=== PATIENT | female | born 1995 | race Caucasian/White ===

== ENCOUNTER 2018-11-18 19:38 | Emergency (ER) | payer OTHER ==
[2018-11-18 20:03] VITALS: BP 129/92
[2018-11-18] MEDS ORDERED: Lidocaine 2% PF * 5 ML VIAL INJ ONE (21:07)
--- NOTE | 2018-11-18 21:07 | UC ---
Skin Complaint HPI - HPI Summary HPI Summary: 23 year old female who has a "cyst"on her tailbone since yesterday. No hx of pilonidal cysts. Denies fever or chills. - History of Current Complaint Chief Complaint: UCSkin Time Seen by Provider: 11/18/18 21:04 Stated Complaint: SORE ON TALE BONE Hx Obtained From: Patient Hx Last Menstrual Period: [id number] ?: No Onset/Duration: Gradual Onset Skin Exposure Onset/Duration: Worse Since: - yesterday Timing: Constant Onset Severity: Mild Current Severity: Moderate Pain Intensity: 6 Location: Other - located at tailbone Character: Swelling, Pain, Redness Aggravating Factor(s): Clothing, Touch Alleviating Factor(s): Nothing - Allergy/Home Medications Allergies/Adverse Reactions: Allergies Allergy/AdvReac Type Severity Reaction Status Date / Time No Known Allergies Allergy Verified 11/18/18 20:03 Home Medications: Home Medications Ibuprofen TAB* [Motrin TAB* 400 MG] 400 mg PO Q6H PRN 11/18/18 [History Confirmed 11/18/18] PMH/Surg Hx/FS Hx/Imm Hx Previously Healthy: Yes - Surgical History Surgical History: Yes Surgery Procedure, Year, and 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 - Family History Known Family History: Positive: Non-Contributory - Social History Alcohol Use: Weekly Alcohol Amount: 3X Substance Use Type: None Smoking Status (MU): Never Smoked Tobacco Review of Systems All Other Systems Reviewed And Are Negative: Yes Skin: Positive: Other - Red, swollen, tender "cyst" around coccyx area Is Patient Immunocompromised?: No Physical Exam Triage Information Reviewed: Yes Appearance: Well-Appearing, No Pain Distress, Well-Nourished Vital Signs: Initial Vital Signs Temp 98.8 F 11/18/18 19:58 Pulse 74 11/18/18 19:58 Resp 16 11/18/18 19:58 BP 129/92 11/18/18 19:58 Pulse Ox 100 11/18/18 19:58 Vital Signs Reviewed: Yes Respiratory: Positive: Lungs clear, Normal breath sounds, No respiratory distress, No accessory muscle use Cardiovascular: Positive: RRR, No Murmur, Pulses Normal, Brisk Capillary Refill Skin: Positive: Other - Small abscess formation distal coccyx area, with erythema, tenderness on palpation, minimally fluctuant raised area measuring approximately 1.0 cm in diameter, surrounded by a hard base measuring approximately 2.5 cm. Procedures - Incision and Drainage Coccyx Anesthesia: Local, Lidocaine Instrument(s): Scalpel Packing: Other - No packing, the abscess was not very deep, but a moderate amount of odorous pus drainage was expressed. The abscess was probed but no loculations were found. This was not a very deep abscess. Course/Dx - Course Course Of Treatment: Pt tolerated the Incision and Drainage well. A gauze dressing was placed and a maxi pad. She is to change that as needed, and follow up with a surgeon on Tuesday for a recheck. Cephalexin 500 mg p.o. was given here and a RX for the same. - Diagnoses Provider Diagnosis: Pilonidal abscess Discharge - Sign-Out/Discharge Documenting (check all that apply): Patient Departure All imaging exams completed and their final reports reviewed: No Studies - Discharge Plan Condition: Fair Disposition: HOME Prescriptions: Cephalexin CAP* [Keflex 500 CAP*] 500 mg PO TID 10 Days #30 cap Patient Education Materials: Pilonidal Cyst Excision (DC) Referrals: Km Rodgers MD [Medical Doctor] - No Primary Care Phys,NOPCP [Primary Care Provider] - Additional Instructions: Warm water soaks 4-6 times a day for 20 minutes each time. Go to the emergency room if you develop fever, chills, worsening symptoms. Follow up with the surgeon on Tuesday or Tuesday for recheck. Change the dressing as needed. - Billing Disposition and Condition Condition: FAIR Disposition: Home
[2018-11-18] MEDS ORDERED: Cephalexin CAP* 500 MG PO ONE (21:32)
== END 2018-11-18 21:50 | disposition home or self-care (01) ==
LOC: UCEAST 19:38
DX: L05.01 Pilonidal cyst with abscess (principal)
CPT/HCPCS: 10080; 99202; A9270-GY; G0463